=== PATIENT | female | born 1945 | race Caucasian/White ===

== ENCOUNTER 2020-12-18 14:05 | Emergency (ER) | payer BC ==
[~2020-12-18] VITALS: Ht 157.5 cm; Wt 56.7 kg
[2020-12-18 14:05] VITALS: BP_SYST 124
--- NOTE | 2020-12-18 14:05 | NUR ---
Pt to remain in the ER lobby until ER bed becomes available.
--- NOTE | 2020-12-18 14:47 | NUR ---
Pt to bed 4 for evaluation. Report given to MANDA Valladares who will assume care.
--- NOTE | 2020-12-18 14:50 | NUR ---
Pt came into ER for complaint of head pain 10/10. Pt reports she was stepping out of the car when she lost her footing and hit the back of her head on a step. Pt denies losing conciousness. Pt presenting with small laceration to the back of the head. Pt is AAOX4 speaking full sentences resting in gurney no acuyte distress noted. Pt has daughter at bedside.
--- NOTE | 2020-12-18 14:55 | NUR ---
ER at bedside examining patient.
--- NOTE | 2020-12-18 15:00 | NUR ---
Lab at bedside.
--- NOTE | 2020-12-18 16:00 | NUR ---
Head abrasion cleaned with sterile irrigating solution and betadine swabs. Pt tolerated well.
[2020-12-18 16:20] LABS: BASOPHILS % (AUTO) 0.2 % (0.0-2.0); EOSINOPHILS % (AUTO) 0.2 % (0.0-4.0); HEMATOCRIT 37.8 % (36-48); HEMOGLOBIN 12.6 g/dL (12.0-16.0); LYMPHOCYTES # (AUTO) 1.8 K/uL (1.0-5.5); LYMPHOCYTES % (AUTO) 14.4 % (20.5-51.5); MEAN CORPUSCULAR HEMOGLOBIN 30 pg (27-31); MEAN CORPUSCULAR HGB CONC 33 % (32-36); MEAN CORPUSCULAR VOLUME 90 fL (79.0-98.0); MONOCYTES # (AUTO) 0.5 K/uL (0.0-1.0); MONOCYTES % (AUTO) 3.7 % (1.7-9.3); NEUTROPHILS # (AUTO) 10.1 K/uL (1.8-7.7); NEUTROPHILS % (AUTO) 81.5 % (40.0-70.0); PLATELET COUNT (AUTO) 191 K/uL (130-430); RED BLOOD CELL COUNT(AUTO) 4.21 MIL/uL (4.2-6.2); RED CELL DISTRIBUTION WIDTH 13.3 % (9.0-15.0); WHITE BLOOD COUNT (AUTO) 12.3 K/uL (4.8-10.8)
[2020-12-18 16:21] LABS: ANION GAP 7 (5-15); CALCIUM 9.7 mg/dL (8.4-11.0); CHLORIDE 99 mmol/L (98-107); CREATININE 0.86 mg/dL (0.55-1.30); GLUCOSE 129 mg/dL (70-99); POTASSIUM 3.9 mmol/L (3.5-5.1); SODIUM SERUM 135 mmol/L (136-145); UREA NITROGEN, BLOOD 17 mg/dL (8-21)
[2020-12-18 16:25] LABS: PROTHROMBIN TIME 10.4 SECS (9.5-12.5)
[2020-12-18 16:28] LABS: ALANINE AMINOTRANSFERASE 32 U/L (12-78); ALBUMIN 4.2 g/dL (3.4-4.8); ASPARTATE AMINOTRANSFERASE 21 U/L (10-37); TOTAL BILIRUBIN 0.7 mg/dL (0.0-1.0)
--- NOTE | 2020-12-18 16:30 | NUR ---
Pt resting in [place] [facility] no distress at this time. Daughter at bedside.
[2020-12-18 16:49] VITALS: BP_SYST 124
--- NOTE | 2020-12-18 16:49 | NUR ---
Patient given written and verbal discharge instructions and verbalizes understanding. ER MD discussed with patient the results and treatment provided. Patient in stable condition. ID arm band removed. Patient educated on pain management and to follow up with PMD. Pain Scale 2/10. Opportunity for questions provided and answered. Medication side effect fact sheet provided.
== END 2020-12-18 16:49 | disposition home or self-care (01) ==
LOC: SED 14:05
DX: S09.90XA Unspecified injury of head, initial encounter (principal); W01.198A Fall on same level from slipping, tripping and stumbling with subsequent striking against other object, initial encounter; Y93.89 Activity, other specified; Y92.89 Other specified places as the place of occurrence of the external cause; Y99.8 Other external cause status
CPT/HCPCS: 36415; 70450-TC; 76376; 80053; 85025; 85610-TC; 85730-TC; 99284